=== PATIENT | female | born 1955 | race Two or more races ===

== ENCOUNTER 2018-04-24 15:20 | Emergency (ER) | payer OTHER ==
[~2018-04-24] VITALS: Ht 154.9 cm; Wt 63.5 kg
[~2018-04-24 15:20] MED LIST: COZAAR25 MG PO; SYNTHROID100 MCG PO; TRICOR145 MG PO
== END 2018-04-24 23:56 | disposition home or self-care (01) ==
LOC: ER 15:20 → EDBD 15:38 → ER 15:38
DX: K57.92 Diverticulitis of intestine, part unspecified, without perforation or abscess without bleeding (principal)

== ENCOUNTER 2018-12-03 13:28 | Emergency (ER) | payer OTHER ==
[~2018-12-03] VITALS: Ht 154.9 cm; Wt 61.7 kg
[2018-12-03] MEDS ORDERED: RANITIDINE15 MG/1 ML (14:40)
[2018-12-03] MEDS ORDERED: OMEPRAZOLE20 MG (14:40)
[2018-12-03] MEDS ORDERED: ZIPSOR25 MG (14:40)
[2018-12-03] MEDS ORDERED: SIMVASTATIN20 MG (14:41)
== END 2018-12-03 16:21 | disposition home or self-care (01) ==
LOC: ER 13:28
DX: M77.8 Other enthesopathies, not elsewhere classified (principal)

== ENCOUNTER 2020-04-14 13:43 | Emergency (ER) | payer OTHER ==
[~2020-04-14] VITALS: Ht 154.9 cm; Wt 65.8 kg
[~2020-04-14 13:43] MED LIST changes: +OMEPRAZOLE20 MG; +RANITIDINE15 MG/1 ML; +SIMVASTATIN20 MG; +ZIPSOR25 MG
[2020-04-14] MEDS ORDERED: LEVSIN/SL0.125 MG SL (19:01)
[2020-04-14] MEDS ORDERED: PEPCID AC10 MG PO (19:01)
== END 2020-04-14 19:12 | disposition home or self-care (01) ==
LOC: ER 13:43
DX: R10.32 Left lower quadrant pain (principal)

== ENCOUNTER 2020-04-18 11:56 | Emergency (ER) | payer OTHER ==
[~2020-04-18] VITALS: Ht 154.9 cm; Wt 65.8 kg
[~2020-04-18 11:56] MED LIST changes: +LEVSIN/SL0.125 MG SL; +PEPCID AC10 MG PO
[2020-04-18] MEDS ORDERED: SIMVASTATIN5 MG (12:16)
[2020-04-18] MEDS ORDERED: CIPRO500 MG PO (16:09)
[2020-04-18] MEDS ORDERED: KETO10TA2 PO (16:09)
== END 2020-04-18 16:18 | disposition home or self-care (01) ==
LOC: ER 11:56
DX: R30.0 Dysuria (principal); Z03.818 Encounter for observation for suspected exposure to other biological agents ruled out

== ENCOUNTER 2020-05-04 09:35 | Emergency (ER) | payer OTHER ==
[~2020-05-04] VITALS: Ht 154.9 cm; Wt 66.2 kg
[~2020-05-04 09:35] MED LIST changes: +CIPRO500 MG PO; +KETO10TA2 PO; +SIMVASTATIN5 MG
== END 2020-05-04 19:44 | disposition home or self-care (01) ==
LOC: ER 09:35
DX: R10.84 Generalized abdominal pain (principal); R10.2 Pelvic and perineal pain

== ENCOUNTER 2020-05-06 11:04 | Inpatient (IN) | payer OTHER ==
[~2020-05-06] VITALS: Ht 154.9 cm; Wt 66.2 kg
== END 2020-05-09 19:31 | disposition home or self-care (01) | DRG 756 ==
LOC: ER 11:04 → MEDI 13:26
PROVIDERS: ADMIT Internal Medicine; ATTEND Internal Medicine
PROC: BW3GYZZ Magnetic Resonance Imaging (MRI) of Pelvic Region using Other Contrast (ICD-10-PCS; principal; 2020-05-06)
DX: C54.1 Malignant neoplasm of endometrium (principal); R19.00 Intra-abdominal and pelvic swelling, mass and lump, unspecified site; Z98.891 History of uterine scar from previous surgery; E03.9 Hypothyroidism, unspecified; Z20.822 Contact with and (suspected) exposure to COVID-19
CPT/HCPCS: 72198